=== PATIENT | female | born 1995 | race Caucasian/White ===

== ENCOUNTER 2018-12-30 07:12 | Inpatient (IN) | payer OTHER ==
[~2018-12-30] VITALS: Ht 160 cm; Wt 70.3 kg
[2018-12-30] MEDS ORDERED: PRENATAL 19 TA1 EAC1 PO (07:22)
== END 2019-01-01 18:55 | disposition home or self-care (01) | DRG 807 ==
LOC: LDR 07:12 → OB/GYN 07:12
PROVIDERS: ADMIT Obstetrics & Gynecology
PROC: 10E0XZZ Delivery of Products of Conception, External Approach (ICD-10-PCS; principal; 2018-12-30)
PROC: 4A1HXCZ Monitoring of Products of Conception, Cardiac Rate, External Approach (ICD-10-PCS; 2018-12-30)
DX: O80 Encounter for full-term uncomplicated delivery (principal); Z37.0 Single live birth; Z22.330 Carrier of Group B streptococcus; Z3A.39 39 weeks gestation of pregnancy